=== PATIENT | male | born 1955 | race Caucasian/White ===

== ENCOUNTER 2021-05-11 14:45 | Outpatient (CLI) | payer MEDICARE, SELFPAY ==
--- NOTE | 2021-05-11 | ECG_ITS ---
Measurements Intervals [place] Rate: 51 P: 0 AK: 154 QRS: 20 QRSD: 86 T: 12 QT: 414 QTc: 383 Interpretive Statements SINUS BRADYCARDIA BORDERLINE ECG Electronically Signed On 05-11-2021 15:19:07 [employer] by Bolivar Ayers D.O.
== END 2021-05-11 14:46 | disposition home or self-care (01) ==
LOC: ANHLAB 14:48
PROVIDERS: PCP Family Medicine
DX: R03.0 Elevated blood-pressure reading, without diagnosis of hypertension (principal); R00.1 Bradycardia, unspecified
CPT/HCPCS: 93005

== ENCOUNTER 2022-02-24 08:45 | Outpatient (CLI) | payer MEDICARE, SELFPAY ==
[2022-02-24 18:22] LABS: Basophils Percent Auto 0.4 % (0.2-1.2); Eosinophils Absolute Auto 0.2 K/mm3 (0-0.3); Eosinophils Percent Auto 3.2 % (0-4.4); Hematocrit 42.7 % (42.0-52.0); Hemoglobin 13.8 g/dL (14.0-18.0); Immature Granulocyte Absolute 0.01 K/mm3 (0.00-0.031); Immature Granulocyte Percent A 0.2 % (0-0.5); Lymphocytes Absolute Auto 1.65 K/mm3 (0.9-3.2); Lymphocytes Percent Auto 33.1 % (18.3-44.2); Mean Corpuscular HGB Conc 32.3 g/dl (32-36); Mean Corpuscular Hemoglobin 31.7 pg (26-34); Mean Corpuscular Volume 98.2 fl (80-100); Mean Platelet Volume 9.6 fl (7.4-10.4); Monocytes Absolute Auto 0.4 K/mm3 (0.1-0.6); Monocytes Percent Auto 7.2 % (2.6-8.5); Neutrophils Absolute Auto 2.8 K/mm3 (1.3-6.7); Neutrophils Percent Auto 55.9 % (45.5-73.1); Platelet Count Result 210 k/mm3 (150-375); Red Blood Count 4.35 M/mm3 (4.6-6.20); Red Cell Distribution Width 12.1 % (11.5-14.5)
[2022-02-24 19:14] LABS: Alanine Aminotransferase 23 U/L (6-50); Albumin Level 3.6 g/dL (3.5-5.1); Alkaline Phosphatase 64 U/L (38-126); Anion Gap 8 mmol/L (8-16); Aspartate Amino Transferase 51 U/L (17-59); Bilirubin,Total 0.3 mg/dL (0.2-1.3); Blood Urea Nitrogen 14 mg/dL (9-20); Calcium 9.2 mg/dL (8.4-10.2); Carbon Dioxide 27 mmol/L (22-30); Chloride 103 mmol/L (98-107); Cholesterol 175 mg/dL (0-200); Estimated Glomerular Filt Rate > 60; Glucose 109 mg/dL (65-110); HDL Direct 44 mg/dL; Sodium 138 mmol/L (137-145); Triglycerides 279 mg/dL (<150)
[2022-02-24 19:25] LABS: LDL Cholesterol Direct 83 mg/dL
[2022-02-24 19:42] LABS: Prostate Specific Antigen 0.6 ng/mL (< OR = 4.0)
[2022-02-24 19:46] LABS: Hemoglobin A1C 5.1 % (<5.7)
== END 2022-02-24 08:46 | disposition home or self-care (01) ==
LOC: ANHGOSHLAB 08:46
PROVIDERS: PCP Family Medicine; Visit Provider Physician Assistant
DX: Z79.899 Other long term (current) drug therapy (principal); Z12.5 Encounter for screening for malignant neoplasm of prostate; R73.03 Prediabetes
CPT/HCPCS: 36415; 80053; 80061; 83036; 84153; 84443; 85025; G0103

== ENCOUNTER 2024-02-27 10:08 | Outpatient (CLI) | payer MEDICARE, SELFPAY ==
[2024-02-27 14:12] LABS: Basophils Percent Auto 0.3 % (0.2-1.2); Eosinophils Absolute Auto 0.1 K/mm3 (0-0.3); Eosinophils Percent Auto 2.2 % (0-4.4); Hematocrit 42.3 % (42.0-52.0); Hemoglobin 13.7 g/dL (14.0-18.0); Immature Granulocyte Absolute 0.01 K/mm3 (0.00-0.031); Immature Granulocyte Percent A 0.2 % (0-0.5); Lymphocytes Absolute Auto 1.67 K/mm3 (0.9-3.2); Lymphocytes Percent Auto 28.8 % (18.3-44.2); Mean Corpuscular HGB Conc 32.4 g/dl (32-36); Mean Corpuscular Hemoglobin 31.6 pg (26-34); Mean Corpuscular Volume 97.5 fl (80-100); Mean Platelet Volume 9.6 fl (7.4-10.4); Monocytes Absolute Auto 0.5 K/mm3 (0.1-0.6); Monocytes Percent Auto 8.5 % (2.6-8.5); Neutrophils Absolute Auto 3.5 K/mm3 (1.3-6.7); Platelet Count Result 214 k/mm3 (150-375); Red Blood Count 4.34 M/mm3 (4.6-6.20); Red Cell Distribution Width 12.4 % (11.5-14.5); White Blood Count 5.8 K/mm3 (4.5-10.0)
[2024-02-27 14:17] LABS: Anion Gap 6 mmol/L (4-12); Blood Urea Nitrogen 15 mg/dL (9-20); Calcium 8.9 mg/dL (8.4-10.2); Carbon Dioxide 27 mmol/L (22-30); Chloride 105 mmol/L (98-107); Cholesterol 185 mg/dL (0-200); Estimated Glomerular Filt Rate > 60; Glucose 103 mg/dL (65-110); HDL Direct 50 mg/dL; Sodium 138 mmol/L (137-145); Triglycerides 133 mg/dL (<150)
[2024-02-27 14:28] LABS: LDL Cholesterol Direct 91 mg/dL
[2024-02-27 14:46] LABS: Prostate Specific Antigen 0.5 ng/mL (< OR = 4.0)
== END 2024-02-27 10:09 | disposition home or self-care (01) ==
LOC: ANHGOSHLAB 10:09
PROVIDERS: PCP Family Medicine; Visit Provider Nurse Practitioner Family
DX: Z12.5 Encounter for screening for malignant neoplasm of prostate (principal); E78.5 Hyperlipidemia, unspecified; R73.03 Prediabetes; E66.9 Obesity, unspecified; K21.00 Gastro-esophageal reflux disease with esophagitis, without bleeding
CPT/HCPCS: 36415; 80048; 80061; 84153; 84443; 85025; G0103

== ENCOUNTER 2024-03-10 00:45 | Day surgery (SDC) | payer MEDICARE, SELFPAY ==
[2024-02-28 10:44] VITALS: BMI 32.5
--- NOTE | 2024-03-07 14:39 | PC.NURSE ---
pt called and left message that no one had done his preop call yet and he wanted to make sure he wasn't canceled. pt is scheduled for sundaymar 07 and preop call was done on feb 27. called pt back and confirmed with him that he had done the call, he then said he remembered the call. asked him if he had any questions about the prep and he said he had all the instructions and understood what to do.
[2024-03-10] VITALS (7 sets, daily range): BP systolic 104–138; BP diastolic 64–83; PULSE 39–60; RESP 14–25; TEMP 36.2; O2SAT 97–99; BMI 31.6
[2024-03-10] MEDS: LACTATED RINGERS 1,000 ML 150 ML IV CONT (12:07)
--- NOTE | 2024-03-10 12:27 | WPDANESEPPF ---
Anes - Initial Pre Proc Eval Procedure: Operation Date: 03/10/24 13:00 Proposed Procedures p Colonoscopy - Ramy Delaney MD Date/Time: 03/10/24 12:27 Surgeon: Ramy Delaney MD Pre Op Diagnosis: hx of colon polyps Patient Data Age: 68 Gender: M Height: 1.75 m Weight: 97.2 kg Last Vital Signs Temp 36.2 C L 03/10/24 11:45 Pulse 56 L 03/10/24 11:45 Resp 18 03/10/24 11:45 BP 135/72 03/10/24 11:45 Pulse Ox 99 03/10/24 11:45 O2 Del Method Room Air 03/10/24 11:45 Allergies Allergy/AdvReac Type Severity Reaction Status Date / Time No Known Allergies Allergy Verified 03/10/24 11:51 Home Medications Medication Instructions Recorded Confirmed Type lansoprazole 30 mg capsule,delayed 30 mg PO DAILY #90 caps 12/11/23 03/10/24 Rx release Patient hx anesthesia problems: none Family hx anesthesia problems: none Results Review: All pre-operative results and documents have been reviewed as part of the pre-operative evaluation. [facility] Past Medical History Medical History Chronic pain after traumatic injury Hepatitis C antibody test negative (02/03/21) Obesity (BMI 30.0-34.9) Surgical History Surgical History History of total left knee replacement S/P left knee arthroscopy S/P right knee arthroscopy Family History Family History Father Diabetes mellitus Hypertension Family history of cardiovascular disease Mother Family history of cardiovascular disease Grandparent Carcinoma of colon Other Colon polyp Social History Social History Smoking status: Never smoker Alcohol intake: current Drinks per week: 12 Substance use type: marijuana Lack of Transportation: No Lack of Food: Never True Current Housing: I Have Housing Concerned About Future Housing: No Difficulty Paying Gas/Electric Bills: No Difficulty Paying for Meds: No Currently Unemployed: No Education: High School Diploma/GED Difficulty w/ Childcare or Family Care: No Living arrangements: with family Spiritual care concerns: No Anes - Eval Final PreProcedure Day of Procedure 03/10/24 12:27 Patient weight: obese Heart: regular rate and rhythm Lungs: clear to auscultation Airway: Mallampati scale class II Neurological: alert and oriented Last oral intake: >/= 8 hours ASA classification: II Emergent: no Anesthetic plan: proceed Anesthesia type and monitoring: general GIVS and standard monitoring Results Review: All pre-operative results and documents have been reviewed as part of the pre-operative evaluation. Informed Consent: The patient's anesthetic plan and its attendant risks and benefits were discussed with the patient/family/POA. Questions were solicited and answers provided to the satisfaction of the patient/family/POA.
--- NOTE | 2024-03-10 12:52 | PM.IMHP ---
H&P: HPI History of Present Illness Date/Time: 03/10/24 12:52 Chief Complaint: hisstory of colon polyps Narrative: Patient deemed a good candidate for colonoscopy. Will proceed. Review of Systems Review of Systems: All systems reviewed & are unremarkable except as noted in HPI and below PMFSH Past Medical History Medical History Chronic pain after traumatic injury Hepatitis C antibody test negative (02/03/21) Obesity (BMI 30.0-34.9) Surgical History Surgical History History of total left knee replacement S/P left knee arthroscopy S/P right knee arthroscopy Family History Family History Father Diabetes mellitus Hypertension Family history of cardiovascular disease Mother Family history of cardiovascular disease Grandparent Carcinoma of colon Other Colon polyp Social History Social History Smoking status: Never smoker Alcohol intake: current Drinks per week: 12 Substance use type: marijuana Lack of Transportation: No Lack of Food: Never True Current Housing: I Have Housing Concerned About Future Housing: No Difficulty Paying Gas/Electric Bills: No Difficulty Paying for Meds: No Currently Unemployed: No Education: High School Diploma/GED Difficulty w/ Childcare or Family Care: No Living arrangements: with family Spiritual care concerns: No Meds Home Medications and Allergies Home Medications Medication Instructions Recorded Confirmed Type lansoprazole 30 mg capsule,delayed 30 mg PO DAILY #90 caps 12/11/23 03/10/24 Rx release Allergies Allergy/AdvReac Type Severity Reaction Status Date / Time No Known Allergies Allergy Verified 03/10/24 11:51 Vital Signs Vital Signs - 24 hr 03/10/24 11:45 Temperature 97.2 F L Pulse Rate 56 L Respiratory Rate 18 Blood Pressure 135/72 Pulse Oximetry 99 Oxygen Delivery Room Air Assessment and Plan Assessment and plan (1) Family history of colonic polyps: Code(s): Z83.71 - Family history of colonic polyps Status: Acute Plan We will proceed With colonoscopy
[2024-03-10] MEDS: SIMETHICONE ORAL SUSPENSION 20 MG/0.3 ML 30 ML BOTTLE 0.6 ML IRRIGATION (13:06)
--- NOTE | 2024-03-10 13:59 | SUR.PHASEII ---
DR. HOBBS NOTIFIED RE: HR IN LOW 40'S; DR. HOBBS GAVE 0.2 MG GLYCO.
[2024-03-10] MEDS: GLYCOPYRROLATE INJ (*SP) 0.2 MG/ML VIAL IV PUSH ×2 (14:00→14:13)
--- NOTE | 2024-03-10 14:13 | SUR.PHASEII ---
DR. HOBBS NOTIFIED RE: PERSISTENT LOW HR IN LOW 40'S. ORDERED TO GIVE SECOND DOSE OF GLYCOPYRROLATE 0.2 MG. WILL CONTINUE TO MONITOR PATIENT.
--- NOTE | 2024-03-10 14:24 | SUR.PHASEII ---
DR. HOBBS NOTIFIED RE: PERSISTENT LOW HR IN 40'S. INSTRUCTED TO HAVE PATIENT GET UP AND GET DRESSED AND THEN RE-EVALUATE.
--- NOTE | 2024-03-10 14:35 | SUR.PHASEII ---
PATIENT TOLERATED GETTING UP WITHOUT LIGHT-HEADEDNESS; DR. HOBBS CAME TO SEE PATIENT AND SAID PATIENT CAN GO HOME; HR NOW 60.
== END 2024-03-10 14:37 | disposition home or self-care (01) ==
PROVIDERS: PCP Family Medicine; Referring Provider Nurse Practitioner Family; Visit Provider Internal Medicine Gastroenterology
PROC: 0DJD8ZZ Inspection of Lower Intestinal Tract, Via Natural or Artificial Opening Endoscopic (ICD-10-PCS; CPT 45378; principal; 2024-03-10 13:00)
DX: Z12.11 Encounter for screening for malignant neoplasm of colon (principal); K64.1 Second degree hemorrhoids; G89.21 Chronic pain due to trauma; F12.90 Cannabis use, unspecified, uncomplicated; E66.9 Obesity, unspecified; Z68.31 Body mass index [BMI] 31.0-31.9, adult; Z98.890 Other specified postprocedural states; Z86.0100 Personal history of colon polyps, unspecified; Z80.0 Family history of malignant neoplasm of digestive organs; Z82.49 Family history of ischemic heart disease and other diseases of the circulatory system
CPT/HCPCS: G0105; J1596; J2003; J2704; J7120